=== PATIENT | female | born 2000 | race Caucasian/White ===

== ENCOUNTER 2021-09-24 20:18 | Emergency (ER) | payer SELFPAY ==
[2021-09-24] MEDS ORDERED: ZPAK PO (21:21)
[2021-09-24] MEDS ORDERED: NEBULIZER UNIT NEB (21:21)
[2021-09-24] MEDS ORDERED: MEDROL 4MG DOSEP4 MG PO (21:21)
[2021-09-24] MEDS ORDERED: VENTOLIN HFA IN18 GM INH (21:21)
[2021-09-24] MEDS ORDERED: DUONEB 2.5-0.5M1 AMP INH (21:21)
== END 2021-09-24 21:49 | disposition home or self-care (01) ==
LOC: FER 20:18
DX: J45.901 Unspecified asthma with (acute) exacerbation (principal); J18.9 Pneumonia, unspecified organism; F17.290 Nicotine dependence, other tobacco product, uncomplicated
CPT/HCPCS: 71046; 94640; J7512